=== PATIENT | male | born 1995 | race Caucasian/White ===

== ENCOUNTER 2023-11-06 17:54 | Outpatient (CLI) | payer OTHER, SELFPAY | END 2023-11-06 17:55 | disposition home or self-care (01) | LOC: LKVREF 17:55 | PROVIDERS: PCP Family Medicine; Visit Provider Family Medicine | DX: R19.7 Diarrhea, unspecified (principal) | CPT/HCPCS: 87505 ==

== ENCOUNTER 2023-12-02 09:38 | Outpatient (CLI) | payer OTHER, SELFPAY | END 2023-12-02 09:39 | disposition home or self-care (01) | PROVIDERS: PCP Family Medicine; Visit Provider Family Medicine | DX: Z13.220 Encounter for screening for lipoid disorders (principal) | CPT/HCPCS: 80061 ==